=== PATIENT | female | born 1995 | race American Indian/Alaskan Native ===

== ENCOUNTER 2016-07-03 11:00 | Emergency (ER) | payer MEDICAID, OTHER | END 2016-07-03 12:00 | disposition left against medical advice (07) | LOC: ED 11:00 | DX: M54.9 Dorsalgia, unspecified (principal); Z53.21 Procedure and treatment not carried out due to patient leaving prior to being seen by health care provider ==

== ENCOUNTER 2019-07-31 12:51 | Emergency (ER) | payer MEDICAID, OTHER ==
[2019-07-31 12:57] VITALS: BP 131/74
--- NOTE | 2019-07-31 13:54 | Event Note ---
ED Screening Note ED Screening Note: lower abd pain that began this morning n, one episode of vomiting no diarrhea had a BM yesterday +dysuria no pmhx no allergies to meds [employer]ER: [facility] 8 weeks no bleeding This initial assessment/diagnostic orders/clinical plan/treatment(s) is/are subject to change based on patients health status, clinical progression and re- assessment by fellow clinical providers in the ED. Further treatment and workup at subsequent clinical providers discretion. Patient/guardian urged not to elope from the ED as their condition may be serious if not clinically assessed and managed. Initial orders include: labs, UA, US
[2019-07-31 14:37] LABS: Basophils % (Auto) 0.1 % (0.0-1.8); Eosinophils % (Auto) 0.2 % (0.0-4.3); Hematocrit 37.4 % (30.3-42.9); Hemoglobin 12.3 gm/dl (10.1-14.3); Lymphocytes # (Auto) 0.8 K/mm3 (1.2-5.4); Lymphocytes % (Auto) 11.4 % (13.4-35.0); Mean Corpuscular HGB Conc 33 % (30-34); Mean Corpuscular Volume 95 fl (79-97); Monocytes # (Auto) 0.3 K/mm3 (0.0-0.8); Monocytes % (Auto) 3.8 % (0.0-7.3); Platelet Count 176 K/mm3 (140-440); Red Blood Count 3.93 M/mm3 (3.65-5.03); Red Cell Distribution Width 14.6 % (13.2-15.2)
[2019-07-31 15:44] LABS: BUN/Creatinine Ratio 22; Blood Urea Nitrogen 11 mg/dL (7-17)
[2019-07-31 15:45] LABS: Alanine Aminotransferase 13 units/L (7-56); Albumin 3.8 g/dL (3.9-5); Calcium 9.3 mg/dL (8.4-10.2)
[2019-07-31 16:36] LABS: Hemolysis Index 35
[2019-07-31 16:37] LABS: Bilirubin,Urine NEG (Negative); Blood,Urine LG (Negative); Color,Urine Amber (Yellow)
[2019-07-31 16:44] LABS: Bacteria,Urine 1+ /HPF (Negative); Mucus,Urine 1+ /HPF
[2019-07-31 16:45] LABS: WBC,Urine > 182.0 /HPF (0.0-6.0)
--- NOTE | 2019-07-31 17:00 | Emergency Department Report ---
ED Female HPI - General Chief complaint: Abdominal Pain Stated complaint: 8weeks preg pain Time Seen by Provider: 07/31/19 13:52 Source: patient Mode of arrival: Ambulatory Limitations: No Limitations - History of Present Illness MD Complaint: dysuria -: Gradual, days(s) (2) Location: suprapubic Radiation: non-radiating Severity: mild, moderate Quality: burning Consistency: constant Worsens with: urination Associated Symptoms: denies: vaginal discharge, vaginal bleeding, abdominal pain, nausea/vomiting, loss of appetite, hematuria, syncope, weakness - Related Data Sexually active: Yes Previous Rx's Medication Instructions Recorded Last Taken Type Nitrofurantoin Cross/M-Cryst 100 mg PO Q12HR #20 capsule 07/31/19 Unknown Rx [Macrobid CAP] Allergies Allergy/AdvReac Type Severity Reaction Status Date / Time No Known Allergies Allergy Verified 07/31/19 12:51 ED Review of Systems ROS: Stated complaint: 8weeks preg pain Other details as noted in HPI Comment: All other systems reviewed and negative ED Past Medical Hx - Past Medical History Hx Hypertension: No Hx Heart Attack/AMI: No Hx Congestive Heart Failure: No Hx Diabetes: No Hx Deep Vein Thrombosis: No Hx Liver Disease: No Hx Renal Disease: No Hx Sickle Cell Disease: No Hx Seizures: No Hx Asthma: No Hx COPD: No Hx HIV: No - Surgical History Hx Pacemaker: No Hx Internal Defibrillator: No - Social History Smoking Status: Never Smoker Substance Use Type: None - Medications Home Medications: Home Medications Medication Instructions Recorded Confirmed Last Taken Type Nitrofurantoin Cross/M-Cryst 100 mg PO Q12HR #20 capsule 07/31/19 Unknown Rx [Macrobid CAP] ED Physical Exam - General Limitations: No Limitations General appearance: alert, in no apparent distress - Head Head exam: Present: atraumatic, normocephalic - Eye Eye exam: Present: normal appearance, PERRL, EOMI Pupils: Present: normal accommodation - ENT ENT exam: Present: mucous membranes moist - Neck Neck exam: Present: normal inspection - Respiratory Respiratory exam: Present: normal lung sounds bilaterally. Absent: respiratory distress - Cardiovascular Cardiovascular Exam: Present: regular rate, normal rhythm. Absent: systolic murmur, diastolic murmur, rubs, gallop - GI/Abdominal GI/Abdominal exam: Present: soft, normal bowel sounds - Extremities Exam Extremities exam: Present: normal inspection - Back Exam Back exam: Present: normal inspection - Neurological Exam Neurological exam: Present: alert, oriented X3 - Psychiatric Psychiatric exam: Present: normal affect, normal mood - Skin Skin exam: Present: warm, dry, intact, normal color. Absent: rash ED Course Vital Signs 07/31/19 12:56 Temperature 98.5 F Pulse Rate 99 H Respiratory 20 Rate Blood Pressure 131/74 O2 Sat by Pulse 100 Oximetry ED Medical Decision Making - Lab Data Result diagrams: 07/31/19 14:04 07/31/19 14:04 - Radiology Data Radiology results: report reviewed Print Report Referring Physician:RENITA RASMUSSENPatient Name:IVON SALAZARPatient ID:Antoine [id number] of :[id number]:FemaleAccession:[id number] Date:1478-08-82Nxzvyl Status:Finalized Findings [facility] [address] [place] [address] Ultrasound Report Signed Patient: IVON SALAZAR MR#: [id number] 70 : 1995 Acct:[id number] Age/Sex: 24 / F ADM Date: 07/31/19 Loc: ED Attending Dr: Ordering Physician: IRAM VELEZ Date of Service: 07/31/19 Procedure(s): US OB <= 14 wk fetus add gest Accession Number(s): [id number] cc: IRAM VELEZ Limited OB Ultrasound HISTORY: , lower abd pain. TECHNIQUE: Grayscale and color imaging performed. COMPARISON: None FINDINGS: Transabdominal imaging was performed. Uterus measures 13.1 x 6.0 x 7.5 cm with normal appearance of both ovaries. Preserved blood flow. No pelvic free fluid. There is an intrauterine gestation with crown-rump length of 1.7 cm correlating with an EGA of 8 weeks and 1 day. There is a heart rate of 173 bpm. Yolk sac is present. Estimated delivery date is 03/10/2020. IMPRESSION: Single viable intrauterine gestation as above. Signer Name: Valentín Newell MD Signed: 07/31/2019 5:38 PM Workstation Name: [id number] Transcribed By: CHARLI Dictated By: Valentín Newell MD Electronically Authenticated By: Valentín Newell MD Signed Date/Time: 07/31/191737 DD/ 35 TD/TT: Critical care attestation.: If time is entered above; I have spent that time in minutes in the direct care of this critically ill patient, excluding procedure time. ED Disposition Clinical Impression: UTI (urinary tract infection) Disposition: - TO HOME OR SELFCARE Is pt being admited?: No Does the pt Need Aspirin: No Condition: Stable Instructions: Abdominal Pain (ED), Dysuria (ED), Urinary Tract Infection in Women (ED) Prescriptions: Nitrofurantoin Cross/M-Cryst [Macrobid CAP] 100 mg PO Q12HR #20 capsule [facility] - 3-5 Days
--- NOTE | 2019-07-31 17:43 | Ultrasound Report ---
Limited OB Ultrasound HISTORY: , lower abd pain. TECHNIQUE: Grayscale and color imaging performed. COMPARISON: None FINDINGS: Transabdominal imaging was performed. Uterus measures 13.1 x 6.0 x 7.5 cm with normal appearance of both ovaries. Preserved blood flow. No pelvic free fluid. There is an intrauterine gestation with crown-rump length of 1.7 cm correlating with an EGA of 8 week s and 1 day. There is a heart rate of 173 bpm. Yolk sac is present. Estimated delivery date is . IMPRESSION: Single viable intrauterine gestation as above. Signer Name: Valentín Newell MD Signed: 07/31/2019 5:38 PM Workstation Name: [id number]
== END 2019-07-31 18:47 | disposition home or self-care (01) ==
LOC: ED 12:51
DX: O23.41 Unspecified infection of urinary tract in pregnancy, first trimester (principal); Z3A.08 8 weeks gestation of pregnancy; Z79.899 Other long term (current) drug therapy
CPT/HCPCS: 36415; 76801; 76802; 80053; 81001; 83690; 84702; 85025